=== PATIENT | female | born 1940 | race Caucasian/White ===

== ENCOUNTER → 2016-07-23 | Outpatient (CLI) | payer MEDICARE, BC ==
[~2016-07-23] MED LIST: AMLODIPINE BESY10 MG PO; ARTHROTEC 751 TAB.E2 PO; ARTHROTEC 751 TAB.EC PO; ASPIRIN EC81 M1 PO; ASPIRIN PO; ASPIRIN81 M2 PO; ATARAX; AZO CRANBERRY1 EACH PO; B6 PO; CALCIUM 5001 TAB PO; CALCIUM 600+D T1 TA1 PO; CALCIUM1 TAB.CHEW PO; CENTRUM PO; COLACE PO; DIOVAN; DOCUSATE SODIU100 MG PO; ESTER C PO; ETHAMBUTOL HYD400 MG; EXFORGE; EXFORGE 10-1601 TAB PO; FISH OIL 1,0001 CA2 PO; FISH OIL 1,0001 CAP PO; FISH OIL 1,2001 EAC3 PO; FISH OIL-OMEGA1 EACH PO; FLAGYL PO; GLUCOSAMINE CHO PO; KCL PO; KLOR-CON SPRIN10 MEQ PO; LASIX20 MG PO; LEVAQUIN PO; LEVOTHROID25 MCG PO; LEVOTHYROXINE25 MCG PO; LIPITOR20 MG PO; LOSARTAN POTASS50 MG PO; MECLIZINE HCL12.5 M2 PO; METOPROLOL SUCC25 MG PO; METOPROLOL SUCC50 MG PO; METOPROLOL TAR25 MG DOB; METOPROLOL TAR25 MG PO; MULTI VITAMIN1 EACH PO; MULTI-VITAMIN1 EAC1 PO; MYCOBUTIN; NORVASC; NORVASC10 MG PO; OMEGA-3 FISH OI1 CA1 PO; OYSTER CALCIUM500 MG PO; PAIN RELIEF650 MG PO; PANTOPRAZOLE SO40 M1 PO; PANTOPRAZOLE SO40 MG PO; POTASSIUM CHLO10 ME1 PO; PRAVACHOL PO; PROBIOTIC1 EAC1 PO; PROBIOTIC1 EAC2 PO; PROTONIX PO; STOOL SOFTENER100 M1 PO; SYNTHROID PO; VITAMIN B650 M1 PO; VITAMIN B650 M2 PO; VITAMIN C500 M1 PO; VITAMIN C500 M5 PO; VITAMIN D-32000 UNI1 PO; VITAMIN D32000 UNI1 PO; VITAMIN D32000 UNIT PO; ZITHROMAX; ZOFRAN PO; ZYRTEC
--- NOTE | ~2016-07-23 | CT57 ---
[facility] A Service of [facility] RADIOLOGY TEXT RESULTS PATIENT: IFTIKHAR FAUSTIN LOCATION: [facility] : 38 UNIT #: [id number] AGE: [address]: Hemalatha Tenorio SEX: F ORDER DR: [id number] [facility] [address] [place], [place] [address] [id number] O MR#: [id number] Acc #: [id number] NAME: IFTIKHAR FAUSTIN. : 1940 SEX: F STUDY DATE/TIME: 07/23/2016 14:31 UNIT: [facility] ROOM: STUDY DESCRIPTION: CT Chest Wo Cont Attending Physician: Hemalatha Tenorio A.P.R.N. Referring Physician: Hemalatha Tenorio A.P.R.N. Ordering Physician: Hemalatha Tenorio A.P.R.N. Primary Care Physician: Vish Jacobs Jr., M.D. MEDICAL IMAGING REPORT This report is preliminary unless electronic signature is present EXAM CT chest 07/23/2016. HISTORY Abnormal CT scan. Bronchiectasis. Pulmonary nodules. TECHNIQUE CT of the thorax without contrast. Coronal and sagittal reconstructions were obtained. COMPARISON CT thorax dated 06/04/2016. FINDINGS There is some mild bronchiectasis. This is most pronounced in the medial right middle lobe and the right lower lobe. The degree of mucous plugging and associated nodularity has improved. No new areas of consolidation. Central airways are patent. The thoracic aorta is normal in caliber. No pericardial or pleural effusion. There is a large hiatal hernia. The liver appears morphologically cirrhotic, however this is not definitive. No acute osseous abnormalities. IMPRESSION Areas of bronchiectasis and associated nodularity predominantly in the left lower lobe have improved since the 06/04/2016 exam. No new pulmonary opacities. Dictated by... [facility] A Service of [facility] RADIOLOGY TEXT RESULTS PATIENT: IFTIKHAR FAUSTIN LOCATION: [facility] : 38 UNIT #: [id number] AGE: [address]: Hemalatha Tenorio SEX: F ORDER DR: Yuriy Stinson M.D. THIS IS AN ELECTRONICALLY VERIFIED REPORT Yuriy Stinson M.D. at 07/24/2016 12:12 PM TANVI/rosemarie TD: 07/24/2016 07:05 JOB #: [id number] MEDICAL IMAGING REPORT COPY
== END | disposition home or self-care (01) ==
LOC: CCAT 14:14
DX: J47.9 Bronchiectasis, uncomplicated (principal); R91.8 Other nonspecific abnormal finding of lung field; R93.8 Abnormal findings on diagnostic imaging of other specified body structures
CPT/HCPCS: 71250

== ENCOUNTER → 2017-01-14 | Outpatient (CLI) | payer MEDICARE, BC ==
--- NOTE | ~2017-01-14 | BD1 ---
[facility] A Service of [facility] RADIOLOGY TEXT RESULTS PATIENT: IFTIKHAR FAUSTIN LOCATION: [facility] : 38 UNIT #: [id number] AGE: [address]: Vish Marie MD SEX: F ORDER DR: [id number] [facility] [address] [place], [place] [address] [id number] O MR#: [id number] Acc #: [id number] NAME: IFTIKHAR FAUSTIN : 1940 SEX: F STUDY DATE/TIME: 01/14/2017 10:07 UNIT: [facility] ROOM: STUDY DESCRIPTION: BD Dexa Bone Dens 1+ Site Attending Physician: Vish Marie M.D. Ordering Physician: Vish Marie M.D. Primary Care Physician: Vish Jacobs Jr., M.D. MEDICAL IMAGING REPORT This report is preliminary unless electronic signature is present EXAM DXA scan, 01/14/2017. HISTORY Status post menopause with no hormone replacement therapy. Osteopenia. Family history breast carcinoma. Arthritis. Hypertension with blood pressure medication. Thyroid medication levothyroxine use for several years. FINDINGS Bone mineral density in the lumbar spine from L1-L4 was 1.374 g/cm2 which is 3 standard deviations above the mean when compared to the young adult reference population which is within the range of normal. This is 5.5 standard deviations above the mean when compared to the age-matched population. Compared with 12/28/2014, there has been an increase in bone mineral density in the lumbar spine of 11.1%. Bone mineral density in the left femoral neck was 0.874 g/cm2 which is 0.2 standard deviations above the mean when compared to the young adult reference population which is within the range of normal. This is 2.4 standard deviations above the mean when compared to the age-matched population. Compared with 12/28/2014, there has been a decrease in bone mineral density in the left hip of 1.8%. IMPRESSION Bone mineral density in the lumbar spine and the left hip within the range of normal. Compared with 12/28/2014, there has been an increase in bone mineral density in the lumbar spine and a decrease in bone mineral density in the left hip. Dictated by... [facility] A Service of [facility] RADIOLOGY TEXT RESULTS PATIENT: IFTIKHAR FAUSTIN LOCATION: [facility] : 38 UNIT #: [id number] AGE: [address]: Vish Marie MD SEX: F ORDER DR: Williams Cartagena M.D. THIS IS AN ELECTRONICALLY VERIFIED REPORT Williams Cartagena M.D. at 01/15/2017 7:24 AM KASH/chuck TD: 01/14/2017 21:57 JOB #: [id number] MEDICAL IMAGING REPORT Page 1 of 1 COPY
--- NOTE | ~2017-01-14 | MY29 ---
[facility] A Service of [facility] RADIOLOGY TEXT RESULTS PATIENT: IFTIKHAR FAUSTIN LOCATION: [facility] : 38 UNIT #: [id number] AGE: [address]: Vish Marie MD SEX: F ORDER DR: [id number] [facility] [address] [place], [place] [address] [id number] O MR#: [id number] Acc #: [id number] NAME: IFTIKHAR FAUSTIN : 1940 SEX: F STUDY DATE/TIME: 01/14/2017 9:58 UNIT: [facility] ROOM: STUDY DESCRIPTION: MY [facility] SCREENING W/ CAD BILAT Attending Physician: Vish Marie M.D. Ordering Physician: Vish Marie M.D. Primary Care Physician: Vish Jacobs Jr., M.D. MEDICAL IMAGING REPORT This report is preliminary unless electronic signature is present EXAM Digital screening mammogram 01/14/2017 HISTORY 76-year-old woman positive family history, aunt. Prior bilateral breast biopsies. Annual screen. COMPARISON Mammograms date to 02/19/2006 with most recent screening 12/28/2014. Diagnostic mammogram 08/31/2015. Follow-up right diagnostic breast imaging 02/13/2016. FINDINGS Digital imaging of each breast was completed utilizing screening protocol. Surgical marker was placed right axillary location. Review includes FDA-approved CAD device. Breast parenchyma is partially fatty replaced and heterogeneous. Vascular clips are stable axillary tail right breast. Small nodular parenchymal pattern somewhat dominant in the left breast appear stable bilaterally. I see no interval occurring mass. There are no suspicious microcalcifications and no architectural deformity. Image guided biopsy marker stable left retroareolar location. IMPRESSION Stable benign mammogram. Annual screening recommended. Patients over the age of 40 are entered into a reminder system with target due date for the next mammogram. A result letter will also be sent to the patient. BIRADS: 2, benign findings. [facility] A Service of [facility] RADIOLOGY TEXT RESULTS PATIENT: IFTIKHAR FAUSTIN LOCATION: [facility] : 38 UNIT #: [id number] AGE: [address]: Vish Marie MD SEX: F ORDER DR: Dictated by... Twan Stacy M.D. THIS IS AN ELECTRONICALLY VERIFIED REPORT Twan Stacy M.D. at 01/14/2017 3:01 PM ALIA/elisa TD: 01/14/2017 14:20 JOB #: [id number] MEDICAL IMAGING REPORT Page 1 of 1 COPY
== END | disposition home or self-care (01) ==
LOC: CWCC 09:15
DX: Z12.31 Encounter for screening mammogram for malignant neoplasm of breast (principal); Z13.820 Encounter for screening for osteoporosis; M85.88 Other specified disorders of bone density and structure, other site; Z80.3 Family history of malignant neoplasm of breast; Z98.890 Other specified postprocedural states; Z78.0 Asymptomatic menopausal state
CPT/HCPCS: 77080; G0202